=== PATIENT | female | born 1945 | race Caucasian/White ===

== ENCOUNTER 2023-06-26 15:36 | Outpatient (RCR) | payer MEDICARE, SELFPAY | END 2023-06-26 23:59 | disposition home or self-care (01) | LOC: CRHB 15:36 | PROVIDERS: ATTENDING PHYSICIAN Internal Medicine Cardiovascular Disease; FAMILY PHYSICIAN Internal Medicine | DX: I25.10 Atherosclerotic heart disease of native coronary artery without angina pectoris (principal); Z95.5 Presence of coronary angioplasty implant and graft; I25.2 Old myocardial infarction | CPT/HCPCS: G0422; G0423 ==

== ENCOUNTER → 2023-09-24 09:03 | Outpatient (REF) | payer MEDICARE, SELFPAY ==
[2023-09-24 13:15] LABS: HDL Cholesterol 59 mg/dl; LDL Cholesterol, Calculated 44 mg/dl; Total Cholesterol 121 mg/dl (50-199); Triglyceride 94 mg/dl (10-149); Very Low Density Lipoprotein 18 mg/dl (0-30)
== END ==
LOC: HWLAB 09:03
PROVIDERS: ATTENDING PHYSICIAN Internal Medicine Cardiovascular Disease; FAMILY PHYSICIAN Internal Medicine
DX: E78.2 Mixed hyperlipidemia (principal)
CPT/HCPCS: 36415; 80061

== ENCOUNTER → 2023-12-09 08:01 | Outpatient (REF) | payer MEDICARE, SELFPAY ==
[2023-12-09 11:31] LABS: HDL Cholesterol 58 mg/dl; LDL Cholesterol, Calculated 51 mg/dl; Total Cholesterol 127 mg/dl (50-199); Triglyceride 94 mg/dl (10-149); Very Low Density Lipoprotein 18 mg/dl (0-30)
== END ==
LOC: HWLAB 08:01
PROVIDERS: ATTENDING PHYSICIAN Internal Medicine Cardiovascular Disease; FAMILY PHYSICIAN Internal Medicine
DX: E78.2 Mixed hyperlipidemia (principal)
CPT/HCPCS: 36415; 80061

== ENCOUNTER → 2024-03-14 08:15 | Outpatient (REF) | payer MEDICARE, SELFPAY | LOC: HWRAD 08:15 | PROVIDERS: ATTENDING PHYSICIAN Internal Medicine | DX: R22.1 Localized swelling, mass and lump, neck (principal); R59.0 Localized enlarged lymph nodes; R13.10 Dysphagia, unspecified | CPT/HCPCS: 76536 ==

== ENCOUNTER → 2024-03-31 09:19 | Outpatient (REF) | payer MEDICARE, SELFPAY | LOC: HWRCS 09:19 | PROVIDERS: ATTENDING PHYSICIAN Internal Medicine Cardiovascular Disease; FAMILY PHYSICIAN Internal Medicine | DX: I35.1 Nonrheumatic aortic (valve) insufficiency (principal); I77.89 Other specified disorders of arteries and arterioles | CPT/HCPCS: 93306 ==

== ENCOUNTER → 2024-04-11 07:56 | Outpatient (REF) | payer MEDICARE, SELFPAY ==
[2024-04-11 10:26] LABS: ALT (SGPT) 24 U/L (0-35); AST (SGOT) 24 U/L (14-36); Alkaline Phosphatase 90 U/L (38-126); Blood Urea Nitrogen 14 mg/dl (7-17); Calcium 9.5 mg/dl (8.4-10.2); Carbon Dioxide 28 mmol/L (22-30); Chloride 102 mmol/L (98-107); Glucose 89 mg/dl (70-99); HDL Cholesterol 65 mg/dl; LDL Cholesterol, Calculated 44 mg/dl; Potassium 4.1 mmol/L (3.5-5.1); Sodium 139 mmol/L (135-145); Total Bilirubin 0.6 mg/dl (0.2-1.3); Total Cholesterol 131 mg/dl (50-199); Total Protein 6.5 g/dl (6.3-8.2); Triglyceride 111 mg/dl (10-149); Very Low Density Lipoprotein 22 mg/dl (0-30); eGFR > 60.00
== END ==
LOC: HWLAB 07:56
PROVIDERS: ATTENDING PHYSICIAN Internal Medicine; REFERRING PHYSICIAN Internal Medicine Cardiovascular Disease
DX: E78.5 Hyperlipidemia, unspecified (principal)
CPT/HCPCS: 36415; 80053; 80061

== ENCOUNTER → 2024-09-29 14:48 | Outpatient (REF) | payer MEDICARE, SELFPAY | LOC: HWWDC 14:48 | PROVIDERS: ATTENDING PHYSICIAN Internal Medicine | DX: Z12.31 Encounter for screening mammogram for malignant neoplasm of breast (principal) | CPT/HCPCS: 77063; 77067 ==

== ENCOUNTER → 2024-11-02 08:22 | Outpatient (REF) | payer MEDICARE, SELFPAY ==
[2024-11-02 10:22] LABS: % Basophils 1.4 % (0-2); % Eosinophils 1.6 % (0-6); % Immature Granulocytes 0.1 % (0-0.5); % Monocytes 7.8 % (1.7-9.3); % Neutrophils 65.1 % (42.2-75.2); Absolute Basophils 0.1 10^3/uL (0-0.2); Absolute Eosinophils 0.1 10^3/uL (0-0.7); Absolute Lymphocytes 1.8 10^3/uL (1.2-3.4); Absolute Monocytes 0.6 10^3/uL (0.1-0.6); Absolute Neutrophils 4.7 10^3/uL (1.4-6.5); Hematocrit 36.7 % (37.0-47.0); Hemoglobin 12.1 g/dL (12.0-16.0); Mean Corpuscular Hgb 27.9 pg (27.0-31.0); Mean Corpuscular Volume 84.8 fL (81.0-99.0); Mean Platelet Volume 11.6 fL (7.4-10.4); Nucleated Red Blood Cells % 0 %; Platelet Count 190 10^3/uL (130-400); Red Blood Cell Count 4.33 10^6/uL (4.20-5.40); Red Cell Dist. Width 11.9 % (11.5-14.5); White Blood Cell Count 7.3 10^3/uL (4.8-10.8)
[2024-11-02 10:37] LABS: ALT (SGPT) 35 U/L (0-35); AST (SGOT) 33 U/L (14-36); Albumin 4.2 g/dl (3.5-5.0); Alkaline Phosphatase 80 U/L (38-126); Blood Urea Nitrogen 16 mg/dl (7-17); Calcium 9.3 mg/dl (8.4-10.2); Carbon Dioxide 24 mmol/L (22-30); Chloride 108 mmol/L (98-107); Glucose 84 mg/dl (70-99); HDL Cholesterol 62 mg/dl; LDL Cholesterol, Calculated 63 mg/dl; Potassium 4.1 mmol/L (3.5-5.1); Sodium 139 mmol/L (135-145); Total Bilirubin 0.7 mg/dl (0.2-1.3); Total Cholesterol 140 mg/dl (50-199); Total Protein 6.6 g/dl (6.3-8.2); Triglyceride 76 mg/dl (10-149); Very Low Density Lipoprotein 15 mg/dl (0-30); eGFR > 60.00
[2024-11-02 11:03] LABS: TSH Reflex To Free T4 1.17 uIU/ml (0.47-4.68)
[2024-11-02 11:38] LABS: Folate > 20.0 ng/ml (2.76-20); Vitamin B12 938 pg/ml (239-931)
== END ==
LOC: HWLAB 08:22
PROVIDERS: ATTENDING PHYSICIAN Internal Medicine; REFERRING PHYSICIAN Internal Medicine Cardiovascular Disease
DX: M54.31 Sciatica, right side (principal); M54.32 Sciatica, left side; G62.9 Polyneuropathy, unspecified; E78.5 Hyperlipidemia, unspecified; I35.1 Nonrheumatic aortic (valve) insufficiency; I25.10 Atherosclerotic heart disease of native coronary artery without angina pectoris
CPT/HCPCS: 36415; 80053; 80061; 82607; 82746; 84443; 85025

== ENCOUNTER 2025-01-05 14:46 | Outpatient (RCR) | payer MEDICARE, SELFPAY | END 2025-01-05 23:59 | disposition home or self-care (01) | LOC: RPT 14:46 | PROVIDERS: ATTENDING PHYSICIAN Internal Medicine | DX: M54.50 Low back pain, unspecified (principal); R26.89 Other abnormalities of gait and mobility; Z74.09 Other reduced mobility; Z73.6 Limitation of activities due to disability; M43.16 Spondylolisthesis, lumbar region | CPT/HCPCS: 97110; 97112; 97163; 97530 ==

== ENCOUNTER 2025-02-08 15:07 | Outpatient (RCR) | payer MEDICARE, SELFPAY | END 2025-02-08 23:59 | disposition home or self-care (01) | LOC: RPT 15:07 | PROVIDERS: ATTENDING PHYSICIAN Internal Medicine | DX: M54.50 Low back pain, unspecified (principal); R26.89 Other abnormalities of gait and mobility; Z74.09 Other reduced mobility; Z73.6 Limitation of activities due to disability; M43.16 Spondylolisthesis, lumbar region | CPT/HCPCS: 97110; 97112; 97530 ==

== ENCOUNTER → 2025-02-23 10:33 | Outpatient (REF) | payer MEDICARE, SELFPAY | LOC: PAVMRI 10:33 | PROVIDERS: ATTENDING PHYSICIAN Psychiatry & Neurology Neurology; FAMILY PHYSICIAN Internal Medicine | DX: M54.16 Radiculopathy, lumbar region (principal) | CPT/HCPCS: 72148 ==

== ENCOUNTER 2025-02-24 11:09 | Outpatient (RCR) | payer MEDICARE, SELFPAY | END 2025-02-24 23:59 | disposition home or self-care (01) | LOC: RPT 11:09 | PROVIDERS: ATTENDING PHYSICIAN Internal Medicine | DX: M54.50 Low back pain, unspecified (principal); R26.89 Other abnormalities of gait and mobility; Z74.09 Other reduced mobility; Z73.6 Limitation of activities due to disability; M43.16 Spondylolisthesis, lumbar region | CPT/HCPCS: 97110; 97112; 97530 ==

== ENCOUNTER → 2025-03-27 14:20 | Outpatient (REF) | payer MEDICARE, SELFPAY | LOC: HWRAD 14:20 | PROVIDERS: ATTENDING PHYSICIAN Psychiatry & Neurology Neurology; FAMILY PHYSICIAN Internal Medicine | DX: M54.50 Low back pain, unspecified (principal) | CPT/HCPCS: 72110 ==

== ENCOUNTER → 2025-03-30 08:45 | Outpatient (REF) | payer MEDICARE, SELFPAY | LOC: EMG 08:45 | PROVIDERS: ATTENDING PHYSICIAN Psychiatry & Neurology Neurology; FAMILY PHYSICIAN Internal Medicine | DX: M79.606 Pain in leg, unspecified (principal); R20.0 Anesthesia of skin | CPT/HCPCS: 95886; 95911 ==

== ENCOUNTER → 2025-05-20 08:45 | Outpatient (REF) | payer MEDICARE, SELFPAY ==
[2025-05-20 10:40] LABS: ALT (SGPT) 31 U/L (0-35); AST (SGOT) 31 U/L (14-36); Albumin 4.2 g/dl (3.5-5.0); Alkaline Phosphatase 84 U/L (38-126); Blood Urea Nitrogen 15 mg/dl (7-17); Calcium 9.1 mg/dl (8.4-10.2); Carbon Dioxide 27 mmol/L (22-30); Chloride 104 mmol/L (98-107); Glucose 79 mg/dl (70-99); HDL Cholesterol 65 mg/dl; LDL Cholesterol, Calculated 59 mg/dl; Potassium 4.3 mmol/L (3.5-5.1); Sodium 136 mmol/L (135-145); Total Protein 7.0 g/dl (6.3-8.2); Very Low Density Lipoprotein 17 mg/dl (0-30); eGFR > 60.00
[2025-05-20 11:03] LABS: Glycohemoglobin (HgbA1c) 5.3 % (4.0-5.9); Vitamin D, 25-OH*** 52.4 ng/mL (30-80)
[2025-05-20 11:34] LABS: C-Reactive Protein < 5.00 mg/L (0.0-10.00)
[2025-05-20 11:36] LABS: Vitamin B12 860 pg/ml (239-931)
[2025-05-20 12:52] LABS: Folate > 20.0 ng/ml (2.76-20)
[2025-05-20 18:12] LABS: Hepatitis B Surface Antigen Negative (Negative)
[2025-05-20 18:30] LABS: Hepatitis C Antibody Negative (Negative)
[2025-05-20 19:44] LABS: Hepatitis A Antibody, Total Negative (Negative)
[2025-05-22 19:53] LABS: HLA-B27 Negative (Negative)
== END ==
LOC: REG 08:45
PROVIDERS: ATTENDING PHYSICIAN Psychiatry & Neurology Neurology; FAMILY PHYSICIAN Internal Medicine; REFERRING PHYSICIAN Internal Medicine Cardiovascular Disease
DX: E78.5 Hyperlipidemia, unspecified (principal); M93.1 Kienbock's disease of adults; E13.42 Other specified diabetes mellitus with diabetic polyneuropathy; D51.0 Vitamin B12 deficiency anemia due to intrinsic factor deficiency; M45.0 Ankylosing spondylitis of multiple sites in spine; E72.11 Homocystinuria; D52.9 Folate deficiency anemia, unspecified; R94.6 Abnormal results of thyroid function studies; Z20.828 Contact with and (suspected) exposure to other viral communicable diseases; R79.82 Elevated C-reactive protein (CRP); R70.0 Elevated erythrocyte sedimentation rate; Z13.21 Encounter for screening for nutritional disorder; Z13.228 Encounter for screening for other metabolic disorders; Z13.29 Encounter for screening for other suspected endocrine disorder; A69.20 Lyme disease, unspecified; Z11.59 Encounter for screening for other viral diseases; Z13.828 Encounter for screening for other musculoskeletal disorder; Z01.812 Encounter for preprocedural laboratory examination; Z79.899 Other long term (current) drug therapy; E53.1 Pyridoxine deficiency; E55.9 Vitamin D deficiency, unspecified
CPT/HCPCS: 36415; 80053; 80061; 82248; 82306; 82607; 82746; 82784; 83036; 83090; 83516; 83921; 84207; 84443; 85652; 86038; 86140; 86231; 86235; 86430; 86618; 86706; 86708; 86803; 86812; 87340

== ENCOUNTER → 2025-06-06 10:01 | Outpatient (REF) | payer MEDICARE, SELFPAY | LOC: HWRCS 10:01 | PROVIDERS: ATTENDING PHYSICIAN Internal Medicine Cardiovascular Disease; FAMILY PHYSICIAN Internal Medicine | DX: I35.1 Nonrheumatic aortic (valve) insufficiency (principal); I77.89 Other specified disorders of arteries and arterioles | CPT/HCPCS: 93306 ==